=== PATIENT | male | born 1950 | race Caucasian/White ===

== ENCOUNTER 2016-12-17 21:35 | Emergency (ER) | payer MEDICARE, OTHER ==
[~2016-12-17] VITALS: Ht 182.9 cm; Wt 136.5 kg
[~2016-12-17 21:35] MED LIST: ALBU0.63 NEB; ALBU8.5H5 INH; AMLO5TAB4 PO; ASPI-515 PO; ATOR40TA PO; CHOL500014 PO; CIPR500T8 PO; CLOP75TA22 PO; FURO-92 PO; GARL1CAP3 PO; HYDR-3307 PO; METO25TA35 PO; OMEG1CAP23 PO; VARE1TAB21 PO
[2016-12-17 21:37] VITALS: BP 156/78
== END 2016-12-18 00:13 | disposition home or self-care (01) ==
LOC: ED 23:45
DX: I71.2 Thoracic aortic aneurysm, without rupture (principal); I71.4 Abdominal aortic aneurysm, without rupture; Z87.891 Personal history of nicotine dependence
CPT/HCPCS: 93005; 99283

== ENCOUNTER → 2017-03-08 | Outpatient (CLI) | payer MEDICARE ==
[~2017-03-08] VITALS: Ht 182.9 cm; Wt 136.0 kg
[~2017-03-08] MED LIST changes: +ALBU8.5H8 INH; +AMLO5TAB2 PO; +BACITRACIN 50,000 UNIT ONE; +BUPIVACAINE/PF 0.5% INFIL ONE; +BUPIVACAINE/PF 0.5% ONE; -CHOL500014 PO; +CHOL500045 PO; +CLIN300C8 PO; -CLOP75TA22 PO; +CLOP75TA52 PO; +CYCL1DRO EACHEYE; +DOXA4TAB2 PO; +EPINEPHRINE 1 MG/ML, 1ML ONE; +FENTANYL PF 250 MCG/5ML ONE; +FLUC200T4 PO; +GENT5DRO EACHEYE; +HEPARIN 1,000 UNITS/ML, 10ML ONE; +HYPR10GE5 EACHEYE; +LACTATED RINGERS 1,000 ML IV SCH; +LIDOCAINE 1%, 2ML ONE; +LIDOCAINE 1%, 2ML SQ PRN; +LIDOCAINE-MPF 2% ,5ML ONE; +METO50TA82 PO; +MIDAZOLAM 1 MG/ML, 2ML ONE; +OMEP-110 PO; +PROTAMINE SULFATE 10 MG/ML, 5ML ONE; +SODI650T PO; +THROMBIN 5,000 UNIT VIAL TP ONE
[2017-03-08 08:36] VITALS: BP 153/88
[2017-03-08 08:42] LABS: HEMATOCRIT 49.4 % (39.2-51.8); HEMOGLOBIN 16.3 g/dL (13.7-18.0); WHITE BLOOD COUNT 11.2 x10^3/uL (3.4-10)
[2017-03-08 08:51] LABS: ASPARTATE AMINO TRANSFERASE 13 U/L (15-37); BLOOD UREA NITROGEN 23 mg/dL (7-18)
== END ==
LOC: SDC 05:00 → ORIP 07:33 → UNDOADMIN 07:33 → EDSTATUS 09:30 → UNDODISIN 12:25
PROVIDERS: ATTEND Surgery
DX: Z02.9 Encounter for administrative examinations, unspecified (principal)
CPT/HCPCS: 36415; 71010; 80053; 85025; 86850; 86900; 86923; J0171; J1644; J2250; J2720; J3010; J3490; J7120

== ENCOUNTER 2017-03-10 06:15 | Inpatient (IN) | payer MEDICARE ==
[~2017-03-10] VITALS: Ht 182.9 cm; Wt 128.9 kg
[~2017-03-10 06:15] MED LIST changes: -BACITRACIN 50,000 UNIT ONE; -BUPIVACAINE/PF 0.5% INFIL ONE; -BUPIVACAINE/PF 0.5% ONE; -EPINEPHRINE 1 MG/ML, 1ML ONE; -FENTANYL PF 250 MCG/5ML ONE; -HEPARIN 1,000 UNITS/ML, 10ML ONE; -LACTATED RINGERS 1,000 ML IV SCH; -LIDOCAINE 1%, 2ML ONE; -LIDOCAINE 1%, 2ML SQ PRN; -LIDOCAINE-MPF 2% ,5ML ONE; -MIDAZOLAM 1 MG/ML, 2ML ONE; -PROTAMINE SULFATE 10 MG/ML, 5ML ONE; -THROMBIN 5,000 UNIT VIAL TP ONE
[2017-03-10 06:52] VITALS: BP 143/86
[2017-03-10] MEDS ORDERED: PROTAMINE SULFATE 10 MG/ML, 5ML ONE (06:52)
[2017-03-10] MEDS ORDERED: THROMBIN 5,000 UNIT VIAL TP ONE (06:52)
[2017-03-10] MEDS ORDERED: BACITRACIN 50,000 UNIT ONE (06:53)
[2017-03-10] MEDS ORDERED: THROMBIN 20,000 UNIT VIAL TP ONE (06:53)
[2017-03-10] MEDS ORDERED: HEPARIN 1,000 UNITS/ML, 10ML ONE (06:53)
[2017-03-10] MEDS ORDERED: LIDOCAINE/PF 1%, 30ML ONE (06:53)
[2017-03-10] MEDS ORDERED: BUPIVACAINE/PF 0.5% ONE (06:53)
[2017-03-10] MEDS ORDERED: EPINEPHRINE 1 MG/ML, 1ML ONE (06:53)
[2017-03-10] MEDS ORDERED: LACTATED RINGERS 1,000 ML IV SCH (07:11)
[2017-03-10] MEDS ORDERED: OXYcodone 5 MG/5 ML ORAL.SOL UDC PO PRN (07:30)
[2017-03-10] MEDS ORDERED: FENTANYL PF 100 MCG/2ML IV PRN (07:30)
[2017-03-10] MEDS ORDERED: PROMETHAZINE 25 MG/ML, 1ML IV PRN (07:30)
[2017-03-10] MEDS ORDERED: LABETALOL 5MG/ML, 20ML IV PRN (07:30)
[2017-03-10] MEDS ORDERED: hydrALAzine 20 MG/ML, 1ML IV PRN (07:30)
[2017-03-10] MEDS ORDERED: MEPERIDINE/PF 25MG/0.5ML IVPush PRN (07:30)
[2017-03-10] MEDS ORDERED: ALBUTEROL SULFATE 2.5 MG/3 ML NPPB PRN (07:30)
[2017-03-10] MEDS ORDERED: ONDANSETRON 2MG/ML, 2ML IVPush PRN (07:30)
[2017-03-10] MEDS ORDERED: PHENYLEPHRINE 10 MG/ML ONE (07:37)
[2017-03-10] MEDS ORDERED: PROPOFOL 10 MG/ML, 20ML ONE (07:37)
[2017-03-10] MEDS ORDERED: NEOSTIGMINE 1 MG/ML, 10ML ONE (07:37)
[2017-03-10] MEDS ORDERED: ROCURONIUM 10 MG/ML,10ML ONE (07:37)
[2017-03-10] MEDS ORDERED: CEFAZOLIN 1,000 MG ONE (07:37)
[2017-03-10] MEDS ORDERED: GLYCOPYRROLATE 0.2MG/1ML, 5ML ONE (07:37)
[2017-03-10] MEDS ORDERED: PROTAMINE SULFATE 10 MG/ML, 25ML ONE (11:50)
[2017-03-10] MEDS ORDERED: FENTANYL PF 100 MCG/2ML ONE (12:15)
[2017-03-10] MEDS ORDERED: HYDROmorphone 1 MG/ML, 1ML ONE (12:15)
[2017-03-10] MEDS ORDERED: ALBUTEROL SULFATE 2.5 MG/3 ML ONE (12:38)
[2017-03-10] MEDS: HYDROmorphone 1 MG/ML, 1ML IV PRN ×3 (12:40→14:00)
[2017-03-10] MEDS ORDERED: OXYcodone 5 MG/5 ML ORAL.SOL UDC ONE (13:34)
[2017-03-10] MEDS ORDERED: ENOXAPARIN 30 MG/0.3 ML SQ SCH (15:00)
[2017-03-10] MEDS ORDERED: ONDANSETRON 2MG/ML, 2ML IV PRN (16:00)
[2017-03-10] MEDS ORDERED: POTASSIUM CHLORIDE 20 MEQ in D5%-LACTATED RINGERS 1,000 ML IV SCH (16:00)
[2017-03-10] MEDS ORDERED: ACETAMINOPHEN 325 MG TABLET PO PRN (16:30)
[2017-03-10] MEDS: morphine SULFATE 10 MG/ML, 1ML IV PRN ×3 (16:36→17:12)
[2017-03-10] MEDS ORDERED: ENOXAPARIN 30 MG/0.3 ML ONE (16:54)
[2017-03-10 17:26] LABS: HEMATOCRIT 46.1 % (39.2-51.8); HEMOGLOBIN 15.1 g/dL (13.7-18.0); WHITE BLOOD COUNT 13.6 x10^3/uL (3.4-10)
[2017-03-10 17:30] LABS: ASPARTATE AMINO TRANSFERASE 21 U/L (15-37); BLOOD UREA NITROGEN 25 mg/dL (7-18)
[2017-03-10] MEDS ORDERED: ENOXAPARIN 30 MG/0.3 ML SQ ONE (17:30)
[2017-03-10 17:35] LABS: IS PT STATUS REG ER OR PRE ER? NO
[2017-03-10] MEDS ORDERED: (Albuterol Sulfate (Proair Hfa) 8.5 GM) INH PRN (18:00)
[2017-03-10] MEDS ORDERED: ALBUTEROL SULFATE 2.5 MG/3 ML NEB PRN ×2 (18:00→21:10)
[2017-03-10] MEDS ORDERED: OMNIPAQUE 350 MG/ML, 100ML BOTTLE ONE (18:14)
[2017-03-10] MEDS: ACETYLCYSTEINE 600 MG CAPSULE PO SCH (18:33)
[2017-03-10] MEDS: SODIUM BICARB 8.4%,50ML SYR. 100 MEQ in SODIUM CHLORIDE 0.45% 1,000 ML IV SCH (18:34)
[2017-03-10] MEDS ORDERED: LORazepam 2 MG/ML, 1ML IVPush ONE (18:57)
[2017-03-10] MEDS: (Cyclosporine (Restasis) 1 DROP) EACHEYE SCH (19:00)
[2017-03-10 20:09] VITALS: BP 128/62
[2017-03-10] MEDS: CLINDAMYCIN 300 MG CAPSULE PO SCH (22:29)
[2017-03-10] MEDS: NICOTINE 14MG/24 HR PATCH.TD24 TD SCH (22:30)
[2017-03-10] MEDS: FLUCONAZOLE 200 MG TABLET PO SCH (22:30)
[2017-03-10] MEDS: SODIUM CHLORIDE FLUSH 10ML SYR IVF SCH (22:35)
[2017-03-11] VITALS (8 sets, daily range): BP systolic 109–149; BP diastolic 63–91
[2017-03-11] MEDS: SODIUM BICARB 8.4%,50ML SYR. 100 MEQ in SODIUM CHLORIDE 0.45% 1,000 ML IV SCH ×2 (03:18→12:29)
[2017-03-11] MEDS: morphine SULFATE 10 MG/ML, 1ML IV PRN ×2 (05:16→06:43)
[2017-03-11 05:59] LABS: HEMATOCRIT 43.6 % (39.2-51.8); HEMOGLOBIN 14.7 g/dL (13.7-18.0); WHITE BLOOD COUNT 13.1 x10^3/uL (3.4-10)
[2017-03-11 06:06] LABS: ASPARTATE AMINO TRANSFERASE 22 U/L (15-37); BLOOD UREA NITROGEN 23 mg/dL (7-18)
[2017-03-11 06:27] LABS: IS PT STATUS REG ER OR PRE ER? NO
[2017-03-11] MEDS: METOPROLOL TARTRATE 50 MG TABLET PO SCH ×2 (06:48→18:17)
[2017-03-11] MEDS ORDERED: POLYETHYLENE GLYCOL 17 GM PACKET PO ONE (09:00)
[2017-03-11] MEDS ORDERED: SODIUM BICARBONATE 650 MG TABLET PO SCH (09:00)
[2017-03-11] MEDS: DOCUSATE 100 MG CAPSULE PO SCH ×2 (09:35→20:22)
[2017-03-11] MEDS: (Cyclosporine (Restasis) 1 DROP) EACHEYE SCH ×2 (09:36→20:21)
[2017-03-11] MEDS: FLUCONAZOLE 200 MG TABLET PO SCH (09:36)
[2017-03-11] MEDS: AMLODIPINE 5 MG TABLET PO SCH (09:36)
[2017-03-11] MEDS: CLINDAMYCIN 300 MG CAPSULE PO SCH (09:36)
[2017-03-11] MEDS: ACETYLCYSTEINE 600 MG CAPSULE PO SCH ×2 (09:36→20:12)
[2017-03-11] MEDS: OMEPRAZOLE 20 MG CAPSULE.DR PO SCH (09:36)
[2017-03-11] MEDS: GENTAMICIN OP SCH ×2 (09:37→20:21)
[2017-03-11] MEDS: PREDNISOLONE OP SCH ×2 (09:37→20:21)
[2017-03-11] MEDS: SODIUM CHLORIDE FLUSH 10ML SYR IVF SCH ×2 (09:40→20:12)
[2017-03-11 14:40] LABS: BLOOD UREA NITROGEN 23 mg/dL (7-18)
[2017-03-11 14:41] LABS: HEMATOCRIT 42.1 % (39.2-51.8); HEMOGLOBIN 14.1 g/dL (13.7-18.0); WHITE BLOOD COUNT 16.6 x10^3/uL (3.4-10)
[2017-03-11] MEDS ORDERED: SIMETHICONE 80 MG CHEW TAB PO PRN (15:00)
[2017-03-11] MEDS: LACTULOSE 20 GM/30 ML UDC PO SCH ×2 (16:09→20:10)
[2017-03-11] MEDS ORDERED: CEFTRIAXONE 2,000 MG in DEXTROSE 5% 50 ML IV SCH (18:30)
[2017-03-11] MEDS ORDERED: VANCOMYCIN PER PHARMACY MC PRN (19:00)
[2017-03-11 19:47] LABS: IS PT STATUS REG ER OR PRE ER? NO
[2017-03-11] MEDS ORDERED: VANCOMYCIN 2,000 MG in SODIUM CHLORIDE 0.9% 500 ML IV SCH (20:00)
[2017-03-11] MEDS ORDERED: PHARMACOKINETIC MONITORING MC PRN (20:00)
[2017-03-11] MEDS ORDERED: PHARMACOKINETIC CONSULTATION MC ONE (20:00)
[2017-03-11] MEDS: NICOTINE 14MG/24 HR PATCH.TD24 TD SCH (20:09)
[2017-03-11] MEDS: DOXAZOSIN 2MG TABLET PO SCH (20:10)
[2017-03-11] MEDS: SYSTANE OP SCH (20:20)
[2017-03-11] MEDS: METRONIDAZOLE PMX 500MG/100ML 100 ML IV SCH (21:02)
[2017-03-12 01:10] LABS: IS PT STATUS REG ER OR PRE ER? NO
[2017-03-12 01:57] VITALS: BP 122/72
[2017-03-12] MEDS: METOPROLOL TARTRATE 50 MG TABLET PO SCH ×2 (05:19→18:21)
[2017-03-12] MEDS: METRONIDAZOLE PMX 500MG/100ML 100 ML IV SCH ×2 (05:19→14:53)
[2017-03-12 05:56] LABS: HEMATOCRIT 40.3 % (39.2-51.8); HEMOGLOBIN 13.5 g/dL (13.7-18.0); WHITE BLOOD COUNT 14.5 x10^3/uL (3.4-10)
[2017-03-12 06:38] VITALS: BP 128/77
[2017-03-12 06:38] LABS: BLOOD UREA NITROGEN 23 mg/dL (7-18)
[2017-03-12 06:45] LABS: IS PT STATUS REG ER OR PRE ER? NO
[2017-03-12] MEDS: OMEPRAZOLE 20 MG CAPSULE.DR PO SCH (07:30)
[2017-03-12] MEDS: (Cyclosporine (Restasis) 1 DROP) EACHEYE SCH (09:00)
[2017-03-12] MEDS: GENTAMICIN OP SCH (09:00)
[2017-03-12] MEDS: PREDNISOLONE OP SCH (09:00)
[2017-03-12] MEDS ORDERED: HALOPERIDOL 5 MG/ML IM ONE (11:00)
[2017-03-12] MEDS ORDERED: CLINDAMYCIN 300 MG CAPSULE PO SCH (11:00)
[2017-03-12] MEDS: AMLODIPINE 5 MG TABLET PO SCH (11:43)
[2017-03-12] MEDS: FLUCONAZOLE 200 MG TABLET PO SCH (11:45)
[2017-03-12] MEDS: ACETYLCYSTEINE 600 MG CAPSULE PO SCH (11:57)
[2017-03-12] MEDS: LACTULOSE 20 GM/30 ML UDC PO SCH ×2 (12:00→18:21)
[2017-03-12] MEDS: DOCUSATE 100 MG CAPSULE PO SCH (12:02)
[2017-03-12] MEDS: SODIUM CHLORIDE FLUSH 10ML SYR IVF SCH (12:06)
[2017-03-12] MEDS: KETOROLAC 30 MG/1 ML IVPush SCH ×2 (12:17→18:21)
[2017-03-12 13:23] VITALS: BP 126/73
[2017-03-12 13:40] LABS: ABG COLLECTION SITE RIGHT RADIAL; COLLATERAL CIRCULATION TESTING NORMAL
[2017-03-12 14:30] VITALS: BP 116/66
[2017-03-12 19:24] VITALS: BP 118/68
[2017-03-12] MEDS ORDERED: CLINDAMYCIN 75 MG/5 ML, ORAL SOL PO SCH (21:00)
[2017-03-13] MEDS: DOXAZOSIN 2MG TABLET PO SCH ×2 (00:05→21:15)
[2017-03-13] MEDS: LACTOBACILLUS CHEW TABLET PO SCH ×4 (00:05→20:48)
[2017-03-13] MEDS: FLUCONAZOLE 200 MG TABLET PO SCH ×2 (00:05→08:54)
[2017-03-13] MEDS: NICOTINE 14MG/24 HR PATCH.TD24 TD SCH ×2 (00:05→20:53)
[2017-03-13] MEDS: ACETYLCYSTEINE 600 MG CAPSULE PO SCH ×2 (00:05→08:54)
[2017-03-13] MEDS: DOCUSATE 100 MG CAPSULE PO SCH ×3 (00:05→20:48)
[2017-03-13] MEDS: LACTULOSE 20 GM/30 ML UDC PO SCH ×4 (00:06→20:49)
[2017-03-13] MEDS: CLINDAMYCIN 300 MG CAPSULE PO SCH ×2 (00:06→08:55)
[2017-03-13] MEDS: (Cyclosporine (Restasis) 1 DROP) EACHEYE SCH ×3 (00:06→20:49)
[2017-03-13] MEDS: GENTAMICIN OP SCH ×3 (00:07→20:49)
[2017-03-13] MEDS: PREDNISOLONE OP SCH ×3 (00:07→20:49)
[2017-03-13] MEDS: SYSTANE OP SCH ×2 (00:07→20:50)
[2017-03-13] MEDS: SODIUM CHLORIDE FLUSH 10ML SYR IVF SCH ×3 (00:09→20:59)
[2017-03-13] MEDS: KETOROLAC 30 MG/1 ML IVPush SCH ×4 (00:09→16:54)
[2017-03-13 01:05] VITALS: BP 128/73
[2017-03-13 05:49] LABS: HEMATOCRIT 40.7 % (39.2-51.8); HEMOGLOBIN 13.6 g/dL (13.7-18.0)
[2017-03-13] MEDS: METOPROLOL TARTRATE 50 MG TABLET PO SCH ×2 (05:52→17:02)
[2017-03-13 05:58] LABS: BLOOD UREA NITROGEN 33 mg/dL (7-18)
[2017-03-13 06:01] LABS: ASPARTATE AMINO TRANSFERASE 20 U/L (15-37)
[2017-03-13 06:10] VITALS: BP 110/69
[2017-03-13] MEDS: OMEPRAZOLE 20 MG CAPSULE.DR PO SCH (08:54)
[2017-03-13] MEDS ORDERED: CLINDAMYCIN 300 MG CAPSULE PO SCH (09:00)
[2017-03-13] MEDS: AMLODIPINE 5 MG TABLET PO SCH (09:08)
[2017-03-13 13:55] VITALS: BP 122/72
[2017-03-13 20:28] VITALS: BP 120/70
[2017-03-13] MEDS ORDERED: ONDANSETRON 2MG/ML, 2ML IV PRN (21:00)
[2017-03-13] MEDS ORDERED: SIMETHICONE 80 MG CHEW TAB PO PRN (21:00)
[2017-03-13] MEDS ORDERED: ACETAMINOPHEN 325 MG TABLET PO PRN (21:00)
[2017-03-14] MEDS: KETOROLAC 30 MG/1 ML IVPush SCH ×5 (00:40→23:12)
[2017-03-14 00:51] VITALS: BP 116/66
[2017-03-14] MEDS: METOPROLOL TARTRATE 50 MG TABLET PO SCH ×3 (05:58→17:56)
[2017-03-14 07:39] VITALS: BP 150/78
[2017-03-14 07:43] LABS: BLOOD UREA NITROGEN 34 mg/dL (7-18)
[2017-03-14] MEDS: OMEPRAZOLE 20 MG CAPSULE.DR PO SCH (08:40)
[2017-03-14] MEDS: SODIUM CHLORIDE FLUSH 10ML SYR IVF SCH ×2 (08:41→20:11)
[2017-03-14] MEDS: FLUCONAZOLE 200 MG TABLET PO SCH (08:42)
[2017-03-14] MEDS: CLINDAMYCIN 300 MG CAPSULE PO SCH (08:42)
[2017-03-14] MEDS: AMLODIPINE 5 MG TABLET PO SCH (08:42)
[2017-03-14] MEDS: LACTOBACILLUS CHEW TABLET PO SCH ×3 (08:42→20:10)
[2017-03-14] MEDS: LACTULOSE 20 GM/30 ML UDC PO SCH ×3 (08:43→20:11)
[2017-03-14] MEDS: DOCUSATE 100 MG CAPSULE PO SCH ×2 (08:43→20:10)
[2017-03-14] MEDS: GENTAMICIN OP SCH ×3 (08:46→20:18)
[2017-03-14] MEDS: (Cyclosporine (Restasis) 1 DROP) EACHEYE SCH ×2 (08:46→20:12)
[2017-03-14] MEDS: PREDNISOLONE OP SCH ×3 (08:46→20:18)
[2017-03-14 15:55] VITALS: BP 134/84
[2017-03-14] MEDS: HALOPERIDOL 5 MG TABLET PO PRN ×2 (18:47→20:11)
[2017-03-14 19:50] VITALS: BP 155/82
[2017-03-14] MEDS: DOXAZOSIN 2MG TABLET PO SCH (20:10)
[2017-03-14] MEDS: NICOTINE 14MG/24 HR PATCH.TD24 TD SCH (20:11)
[2017-03-14] MEDS: SYSTANE OP SCH (20:12)
[2017-03-15 03:35] VITALS: BP 157/78
[2017-03-15] MEDS: KETOROLAC 30 MG/1 ML IVPush SCH (05:00)
[2017-03-15] MEDS: METOPROLOL TARTRATE 50 MG TABLET PO SCH ×2 (06:07→16:59)
[2017-03-15 07:29] VITALS: BP 153/78
[2017-03-15] MEDS: LACTOBACILLUS CHEW TABLET PO SCH ×3 (08:27→20:41)
[2017-03-15] MEDS: FLUCONAZOLE 200 MG TABLET PO SCH (08:27)
[2017-03-15] MEDS: DOCUSATE 100 MG CAPSULE PO SCH ×3 (08:27→20:41)
[2017-03-15] MEDS: OMEPRAZOLE 20 MG CAPSULE.DR PO SCH (08:27)
[2017-03-15] MEDS: AMLODIPINE 5 MG TABLET PO SCH (08:27)
[2017-03-15] MEDS: CLINDAMYCIN 300 MG CAPSULE PO SCH (08:27)
[2017-03-15] MEDS: LACTULOSE 20 GM/30 ML UDC PO SCH ×3 (08:27→20:39)
[2017-03-15] MEDS: (Cyclosporine (Restasis) 1 DROP) EACHEYE SCH ×2 (08:32→20:40)
[2017-03-15] MEDS: PREDNISOLONE OP SCH ×2 (08:33→20:40)
[2017-03-15] MEDS: SODIUM CHLORIDE FLUSH 10ML SYR IVF SCH ×2 (08:33→20:41)
[2017-03-15] MEDS: GENTAMICIN OP SCH ×2 (08:33→20:40)
[2017-03-15] MEDS ORDERED: KETOROLAC MC SCH (10:00)
[2017-03-15] MEDS ORDERED: [UNRECOGNIZED DRUG - REMARK] MC SCH (10:00)
[2017-03-15] MEDS ORDERED: KETOROLAC 30 MG/1 ML IVPush PRN (10:30)
[2017-03-15 12:30] VITALS: BP 154/84
[2017-03-15] MEDS ORDERED: KETOROLAC 30 MG/1 ML IVPush SCH (15:00)
[2017-03-15 16:56] VITALS: BP 170/91
[2017-03-15 20:23] VITALS: BP 157/81
[2017-03-15] MEDS: NICOTINE 14MG/24 HR PATCH.TD24 TD SCH (20:38)
[2017-03-15] MEDS: SYSTANE OP SCH (20:39)
[2017-03-15] MEDS: DOXAZOSIN 2MG TABLET PO SCH (20:41)
[2017-03-16 02:14] VITALS: BP 167/90
[2017-03-16] MEDS ORDERED: KETOROLAC 30 MG/1 ML IVPush SCH (05:00)
[2017-03-16 05:07] LABS: HEMATOCRIT 41.1 % (39.2-51.8); HEMOGLOBIN 13.9 g/dL (13.7-18.0); WHITE BLOOD COUNT 9.6 x10^3/uL (3.4-10)
[2017-03-16 05:14] LABS: BLOOD UREA NITROGEN 30 mg/dL (7-18)
[2017-03-16] MEDS: METOPROLOL TARTRATE 50 MG TABLET PO SCH ×2 (05:16→10:12)
[2017-03-16] MEDS: OMEPRAZOLE 20 MG CAPSULE.DR PO SCH (07:47)
[2017-03-16 08:00] VITALS: BP 142/73
[2017-03-16] MEDS: LACTULOSE 20 GM/30 ML UDC PO SCH ×3 (09:00→23:03)
[2017-03-16] MEDS: DOCUSATE 100 MG CAPSULE PO SCH ×2 (09:00→23:02)
[2017-03-16] MEDS: SODIUM CHLORIDE FLUSH 10ML SYR IVF SCH ×2 (09:00→23:02)
[2017-03-16] MEDS: GENTAMICIN OP SCH ×2 (09:00→21:00)
[2017-03-16] MEDS: PREDNISOLONE OP SCH ×2 (09:00→21:00)
[2017-03-16] MEDS: (Cyclosporine (Restasis) 1 DROP) EACHEYE SCH ×2 (09:00→23:00)
[2017-03-16] MEDS: AMLODIPINE 5 MG TABLET PO SCH (10:11)
[2017-03-16] MEDS: LACTOBACILLUS CHEW TABLET PO SCH ×3 (10:11→23:05)
[2017-03-16] MEDS: FLUCONAZOLE 200 MG TABLET PO SCH (10:11)
[2017-03-16] MEDS: CLINDAMYCIN 300 MG CAPSULE PO SCH (10:11)
[2017-03-16 12:37] VITALS: BP 158/83
[2017-03-16 20:00] VITALS: BP 149/81
[2017-03-16] MEDS: NICOTINE 14MG/24 HR PATCH.TD24 TD SCH (23:05)
[2017-03-16] MEDS: DOXAZOSIN 2MG TABLET PO SCH (23:08)
[2017-03-16] MEDS: SYSTANE OP SCH (23:17)
[2017-03-17 02:00] VITALS: BP 145/79
[2017-03-17 05:01] VITALS: BP 161/91
[2017-03-17] MEDS: METOPROLOL TARTRATE 50 MG TABLET PO SCH (05:03)
[2017-03-17 06:02] LABS: HEMATOCRIT 42.6 % (39.2-51.8); HEMOGLOBIN 14.2 g/dL (13.7-18.0); WHITE BLOOD COUNT 10.8 x10^3/uL (3.4-10)
[2017-03-17 06:16] LABS: BLOOD UREA NITROGEN 28 mg/dL (7-18)
[2017-03-17 08:00] VITALS: BP 154/84
[2017-03-17] MEDS: OMEPRAZOLE 20 MG CAPSULE.DR PO SCH (08:05)
[2017-03-17] MEDS: LACTULOSE 20 GM/30 ML UDC PO SCH (09:00)
[2017-03-17] MEDS: SODIUM CHLORIDE FLUSH 10ML SYR IVF SCH (09:00)
[2017-03-17] MEDS: GENTAMICIN OP SCH (09:00)
[2017-03-17] MEDS: PREDNISOLONE OP SCH (09:00)
[2017-03-17] MEDS: (Cyclosporine (Restasis) 1 DROP) EACHEYE SCH (09:00)
[2017-03-17] MEDS: DOCUSATE 100 MG CAPSULE PO SCH (09:00)
[2017-03-17] MEDS: CLINDAMYCIN 300 MG CAPSULE PO SCH (09:35)
[2017-03-17] MEDS: AMLODIPINE 5 MG TABLET PO SCH (09:35)
[2017-03-17] MEDS: LACTOBACILLUS CHEW TABLET PO SCH (09:35)
[2017-03-17] MEDS: FLUCONAZOLE 200 MG TABLET PO SCH (09:36)
[2017-03-17] MEDS ORDERED: METO50TA82 PO (13:50)
[2017-03-17] MEDS ORDERED: LOVA10TA PO (13:56)
[2017-03-17 14:50] VITALS: BP 147/81
== END 2017-03-17 17:01 | disposition home or self-care (01) | DRG 268 ==
LOC: ORIP 06:15 → 4NOR 15:45 → 4WST 03-11 18:53
PROVIDERS: ADMIT Surgery; ATTEND Family Medicine
PROC: 04V03E6 (ICD-10-PCS; principal; 2017-03-10 07:30)
PROC: 0T9B70Z Drainage of Bladder with Drainage Device, Via Natural or Artificial Opening (ICD-10-PCS; 2017-03-11)
PROC: 5A09357 Assistance with Respiratory Ventilation, Less than 24 Consecutive Hours, Continuous Positive Airway Pressure (ICD-10-PCS; 2017-03-11)
DX: I71.4 Abdominal aortic aneurysm, without rupture (principal); N17.0 Acute kidney failure with tubular necrosis; A41.9 Sepsis, unspecified organism; E44.0 Moderate protein-calorie malnutrition; I25.10 Atherosclerotic heart disease of native coronary artery without angina pectoris; I12.9 Hypertensive chronic kidney disease with stage 1 through stage 4 chronic kidney disease, or unspecified chronic kidney disease; E66.9 Obesity, unspecified; E78.5 Hyperlipidemia, unspecified; G47.33 Obstructive sleep apnea (adult) (pediatric); I72.3 Aneurysm of iliac artery; K21.9 Gastro-esophageal reflux disease without esophagitis; K57.30 Diverticulosis of large intestine without perforation or abscess without bleeding; N18.9 Chronic kidney disease, unspecified; N40.0 Benign prostatic hyperplasia without lower urinary tract symptoms; Z85.828 Personal history of other malignant neoplasm of skin; Z95.1 Presence of aortocoronary bypass graft; R41.0 Disorientation, unspecified; Z68.38 Body mass index [BMI] 38.0-38.9, adult; Z72.0 Tobacco use
CPT/HCPCS: 34802; 34812; 34825; 36200; 36415; 36600; 71010; 74174; 74176; 75952; 75953; 80048; 80053; 81001; 82565; 82803; 83605; 83880; 84484; 85025; 85347; 85651; 86140; 86850; 86900; 86923; 87040; 87086; 93005; 93321; 93325; 94640; C1725; J0171; J0690; J0696; J1170; J1644; J1650; J1885; J2250; J2704; J2710; J2720; J3010; J3370; J3490; J7613; Q9967; C1751; C1768; C1769; C1773; C1894; C2628; C8924; J1630; J2270; J2370; J7040; J7120

== ENCOUNTER → 2017-08-03 | Outpatient (CLI) | payer MEDICARE ==
[~2017-08-03] MED LIST changes: +LOVA10TA PO
== END | disposition home or self-care (01) ==
LOC: RAD 10:10
PROVIDERS: ATTEND Internal Medicine
DX: J18.9 Pneumonia, unspecified organism (principal)
CPT/HCPCS: 71046

== ENCOUNTER → 2017-09-06 | Outpatient (CLI) | payer MEDICARE | LOC: CFH 10:48 | PROVIDERS: ATTEND Nurse Practitioner | DX: Z12.2 Encounter for screening for malignant neoplasm of respiratory organs (principal); J43.9 Emphysema, unspecified; R91.1 Solitary pulmonary nodule; Z87.891 Personal history of nicotine dependence | CPT/HCPCS: 74176; G0297 ==

== ENCOUNTER 2017-12-18 14:36 | Emergency (ER) | payer MEDICARE ==
[~2017-12-18] VITALS: Ht 188 cm; Wt 136.7 kg
[2017-12-18] MEDS ORDERED: CYCL1DRO EACHEYE (15:04)
[2017-12-18] MEDS ORDERED: CARB1DRO EACHEYE (15:05)
[2017-12-18] MEDS ORDERED: ASPI-650 PO (15:05)
[2017-12-18] MEDS ORDERED: GABA-827 PO (15:06)
[2017-12-18] MEDS ORDERED: METO25TA35 PO (15:06)
[2017-12-18] MEDS ORDERED: HYDR-3342 PO (15:06)
[2017-12-18] MEDS ORDERED: MULT-516 PO (15:06)
[2017-12-18 15:40] LABS: BASOPHILS # (AUTO) 0.08 x10^3/uL (0-0.1); BASOPHILS % (AUTO) 1 % (0-1); EOSINOPHILS # (AUTO) 0.26 x10^3/uL (0-0.4); EOSINOPHILS % (AUTO) 4 % (1-7); LYMPHOCYTES # (AUTO) 2.71 x10^3/uL (1-3.4); LYMPHOCYTES % (AUTO) 38 % (22-44); MD NO; MEAN CORPUSCULAR HEMOGLOBIN 31.9 pg (27.5-34.5); MEAN CORPUSCULAR HGB CONC 33.7 g/dL (33.2-36.2); MEAN CORPUSCULAR VOLUME 94.7 fL (81-97); MEAN PLATELET VOLUME 8.3 fL (7.4-10.4); MONOCYTES # (AUTO) 1.29 x10^3/uL (0.2-0.8); MONOCYTES % (AUTO) 18 % (2-9); NEUTROPHILS # (AUTO) 2.79 x10^3/uL (1.8-6.8); NEUTROPHILS % (AUTO) 39 % (42-75); PLATELET COUNT 197 x10^3/uL (130-400); RED BLOOD COUNT 5.28 x10^6/uL (4.38-5.82); RED CELL DISTRIBUTION WIDTH 14.7 % (9.4-14.8)
[2017-12-18 15:44] LABS: ALANINE AMINOTRANSFERASE 44 U/L (12-78); ALBUMIN 3.5 g/dL (3.4-5.0); ANION GAP 8 mmol/L (5-15); CALCIUM 8.7 mg/dL (8.5-10.1); CHLORIDE 109 mmol/L (98-107); CREATININE 1.78 mg/dL (0.7-1.3); SALICYLATE LEVEL 2.6 mg/dL (2.8-20.0)
[2017-12-18 15:56] LABS: ALKALINE PHOSPHATASE 90 U/L (45-117); BILIRUBIN,TOTAL 0.3 mg/dL (0.2-1.0); FREE T4 (FREE THYROXINE) 0.89 ng/dL (0.76-1.46); TOTAL PROTEIN 7.4 g/dL (6.4-8.2)
[2017-12-18 16:17] LABS: O2 FLOW ROOM AIR L/min
[2017-12-18 16:20] LABS: MICROSCOPIC AUTO
[2017-12-18 16:27] LABS: CULTURE INDICATED? NO
[2017-12-18 16:30] LABS: AMPHETAMINE SCREEN, URINE Negative (Negative); BARBITURATE SCREEN, URINE Negative (Negative); BENZODIAZEPINE SCREEN, URINE Negative (Negative); CANNABINOID SCREEN, URINE Negative (Negative); COCAINE SCREEN, URINE Negative (Negative); METHADONE SCREEN, URINE Negative (Negative); OPIATE SCREEN, URINE Negative (Negative)
[2017-12-18 16:50] VITALS: BP 133/80
== END 2017-12-18 16:56 | disposition home or self-care (01) ==
LOC: ED 16:20
DX: R41.82 Altered mental status, unspecified (principal); I10 Essential (primary) hypertension; R51 Headache
CPT/HCPCS: 36415; 36600; 70450; 80053; 80307; 80329; 81001; 82140; 82607; 82803; 83605; 84439; 84443; 85025; 93005; 99285; G0480

== ENCOUNTER → 2018-08-30 | Outpatient (CLI) | payer MEDICARE ==
[~2018-08-30] MED LIST changes: +AMLO-150 PO; -AMLO5TAB2 PO; +ASPI-650 PO; +CARB1DRO EACHEYE; +GABA-827 PO; +HYDR-3342 PO; +MULT-516 PO
== END | disposition home or self-care (01) ==
LOC: CFH 15:36
PROVIDERS: ATTEND Nurse Practitioner
DX: Z12.2 Encounter for screening for malignant neoplasm of respiratory organs (principal); J43.9 Emphysema, unspecified; I25.10 Atherosclerotic heart disease of native coronary artery without angina pectoris; M84.48XA Pathological fracture, other site, initial encounter for fracture; F17.210 Nicotine dependence, cigarettes, uncomplicated; Q85.9 Phakomatosis, unspecified
CPT/HCPCS: G0297